=== PATIENT | male | born 1945 | race Two or more races ===

== ENCOUNTER 2022-12-08 07:22 | Day surgery (SDC) | payer MEDICARE, MEDICAID ==
[2022-12-05 12:52] LABS: BASOPHILS % (AUTO) 0.8 % (0-1); EOSINOPHILS # (AUTO) 0.1 X10'3 (0-0.9); EOSINOPHILS % (AUTO) 1.1 % (0-6); LYMPHOCYTES # (AUTO) 1.2 X10'3 (1.1-4.8); LYMPHOCYTES % (AUTO) 23.8 % (21-51); MEAN CORPUSCULAR HEMOGLOBIN 37.9 PG (27.0-31.0); MEAN CORPUSCULAR HGB CONC 34.1 g/dL (33.0-36.5); MEAN CORPUSCULAR VOLUME 111.2 FL (78-98); MONOCYTES # (AUTO) 0.5 X10'3 (0-0.9); MONOCYTES % (AUTO) 9.4 % (2-12); NEUTROPHILS # (AUTO) 3.4 X10'3 (1.8-7.7); NEUTROPHILS % (AUTO) 64.9 % (42-75); PRE OP HEMATOCRIT 38.5 % (42.0-52.0); PRE OP HEMOGLOBIN 13.1 g/dL (14.0-17.9); PRE OP PLATELET COUNT 232 X10'3 (140-440); RED BLOOD COUNT 3.46 X10'6 (4.70-6.10); RED CELL DISTRIBUTION WIDTH 13.6 % (11.5-14.5)
[2022-12-05 13:05] LABS: ALBUMIN 3.5 G/DL (3.4-5.0); ALBUMIN/GLOBULIN RATIO 0.8 (1.1-1.5); ALKALINE PHOSPHATASE 66 IU/L (46-116); BLOOD UREA NITROGEN 15 MG/DL (7-18); BUN/CREATININE RATIO 17.6 (10.0-20.0); CHLORIDE 105 MMOL/L (99-107); CREATININE 0.85 MG/DL (0.60-1.10); PRE OP ALT 10 U/L (30-65); PRE OP ANION GAP 5 (8-16); PRE OP AST 20 U/L (10-37); PRE OP BILIRUB, TOTAL 0.7 MG/DL (0.0-1.0); PRE OP GLUCOSE 87 MG/DL (70-104); PRE OP POTASSIUM 3.9 MMOL/L (3.4-5.1); PRE OP SODIUM 139 MMOL/L (135-145); TOTAL CARBON DIOXIDE 28.7 MMOL/L (24-32); eGFR 87 ML/MIN
[2022-12-05 13:19] LABS: PLATELET ESTIMATE NORMAL
[~2022-12-08] VITALS: Ht 180.3 cm; Wt 88.4 kg
[2022-12-08] VITALS (16 sets, daily range): BP systolic 129–154; BP diastolic 73–98
[~2022-12-08 07:22] MED LIST: APIX5TAB3 PO; ENOX60DI10 SQ; FAMO40TA7 PO; GABA300C; OXYB10TA30 PO; cefazolin 2gm/D5W 100mL 100 ML IV ONE; famotidine 20mg tablet PO ONE; ringers solution, lacted 1,000 ML IV SCH
[2022-12-08] MEDS ORDERED: BUPIVAcaine/PF 2.5 mg/ml (0.25%) 30ml vial ONE (09:19)
[2022-12-08] MEDS ORDERED: LIDOcaine 1% 30ml preserv. free vial ONE (09:19)
[2022-12-08] MEDS ORDERED: fentaNYL/PF 50MCG/1 ML 2ML syringe ONE (09:39)
[2022-12-08] MEDS ORDERED: midazolam 1 mg/ML 2ml injection ONE (09:39)
[2022-12-08] MEDS ORDERED: LIDOcaine 2% (20mg/ml) 5ml vial ONE (09:47)
[2022-12-08] MEDS ORDERED: propofol inj 20 ML IV ONE (09:47)
[2022-12-08] MEDS ORDERED: rocuronium 10mg/ml inj IV ONE (09:49)
[2022-12-08] MEDS ORDERED: morphine 4 MG/ML inj SYRINge IV PRN (10:15)
[2022-12-08] MEDS ORDERED: fentaNYL/PF 50MCG/1 ML 2ML syringe IV PRN (10:15)
[2022-12-08] MEDS ORDERED: ondansetron/PF 4mg/2ml inj IV PRN (10:15)
[2022-12-08] MEDS ORDERED: morphine 2 MG/ML inj. syringe IV PRN (10:15)
[2022-12-08] MEDS ORDERED: hydrALAZINE 20mg/ml inj. IV PRN (10:15)
[2022-12-08] MEDS ORDERED: ringers solution, lacted 1,000 ML IV SCH (10:15)
--- NOTE | 2022-12-08 11:00 | NUR ---
Received from OR via [facility], accompanied by Anesthesiologist and report given by ESTELA Anesthesiologist. PATIENT WAKING UP, DENIES PAIN, V/S WNL, SCD ON , PIV 20G LEFT HAND, BANDAID LAPS SITES CLOSED C/D/I TO ABDOMEN. Addendum: 12/08/22 at 1130 by Jorge Green RN Amended: Links added.
[2022-12-08] MEDS ORDERED: HYDROcodone/acetaminophen 5mg/325mg tablet PO PRN (11:05)
[2022-12-08] MEDS: fentaNYL/PF 50MCG/1 ML 2ML syringe IV PRN ×4 (11:18→11:56)
--- NOTE | 2022-12-08 13:50 | NUR ---
TRANSFER TO [facility] FLOOR. PREVIOUS MULTIPLE UNSUCCESSFUL ATTEMPT TO URINATE. STILL WAITING PATIENT TO URINATE. VSS. DRESSINGS INTACT. BED LOW, CALL LIGHT PRESENT AND 2 RAILS UP. RN PRESENT TO ACCEPT CARE OF PATIENT AND REPORT HAS BEEN CALLED. ALL QUESTIONS ANSWERED TO ACCEPTING RN.
--- NOTE | 2022-12-08 14:00 | NUR ---
ASSUMED CARE OF PATIENT FROM PACU. VSS NO ISSUES JUST WAITING TO BE ABLE TO URINATE TO BE DISCHARGED.
[2022-12-08] MEDS ORDERED: LidoCAINE 2% Topical Jelly 11mL syringe TOP STA (15:35)
--- NOTE | 2022-12-08 16:30 | NUR ---
PATIENT MEETS DISCHARGE CRITERIA. VSS. CATHETER PLACED DUE TO URINARY RETENTIONS. EDUCATED PATIENT ON MANAGING F/C UNTIL 12-10-22. EDUCATED PATIENT ON HOE TO DC HIS CATHETER. PATIENT VERBALIZED AN UNDERSTANDING OF THE EDUCATION X 2
== END 2022-12-08 16:30 | disposition home or self-care (01) ==
LOC: PRE-OP 07:22
PROVIDERS: ATTEND Surgery
DX: K40.90 Unilateral inguinal hernia, without obstruction or gangrene, not specified as recurrent (principal); Z79.899 Other long term (current) drug therapy; Z98.890 Other specified postprocedural states; Z87.891 Personal history of nicotine dependence; Z86.73 Personal history of transient ischemic attack (TIA), and cerebral infarction without residual deficits
CPT/HCPCS: 49650; 80053; 82948; 85025; 93005; C1781; J0690; J2250; J2270; J2704; J3010; J3490; J7030; J7120; Z7506; Z7508; Z7512; 85008; A4215; A4618